=== PATIENT | male | born 1980 | race Caucasian/White ===

== ENCOUNTER 2025-01-28 07:16 | Outpatient (CLI) | payer OTHER, SELFPAY ==
--- NOTE | 2025-01-28 08:50 | P.ANES_ITS ---
Anesthesia Charges Start Date/Time Anesthesia Start Date: 01/28/25 Anesthesia Start Time: 08:12 Stop Date/Time Anesthesia Stop Date: 01/28/25 Anesthesia Stop Time: 08:47 Coding CPT Codes CPT Codes: ROBBIE LWR INTST NDSC NOS - [id number] ([id number]) P2 - PATIENT W/MILD SYST DISEASE, QK - MAINTENANCE SHOP CLERK 2-4 CNCRNT ANES PROC, QX - SUPERVISOR AUDIT CLERKS SVC W/ MD MED DIRECTION
--- NOTE | 2025-01-28 08:50 | W.ANESCHARGE ---
Anesthesia Charges Start Date/Time Anesthesia Start Date: 01/28/25 Anesthesia Start Time: 08:12 Stop Date/Time Anesthesia Stop Date: 01/28/25 Anesthesia Stop Time: 08:47 Coding CPT Codes CPT Codes: ROBBIE LWR INTST NDSC NOS - [id number] ([id number]) P2 - PATIENT W/MILD SYST DISEASE, QK - HOTEL ROOM ATTENDANT 2-4 CNCRNT ANES PROC, QX - UPHOLSTERY TECHNICIAN SVC W/ MD MED DIRECTION
--- NOTE | 2025-01-28 10:13 | P.ANES_ITS ---
Anesthesia Charges Start Date/Time Anesthesia Start Date: 01/28/25 Anesthesia Start Time: 08:12 Stop Date/Time Anesthesia Stop Date: 01/28/25 Anesthesia Stop Time: 08:47 Coding CPT Codes CPT Codes: ROBBIE IBARRA INTST NDSC NOS - [id number] ([id number]) P2 - PATIENT W/MILD SYST DISEASE, QX - ELECTRONIC TEST TECHNICIAN SVC W/ MD MED DIRECTION, QK - PRODUCT SUPPORT SPECIALIST 2-4 CNCRNT ANERasta PROC
--- NOTE | 2025-01-28 10:13 | W.ANESCHARGE ---
Anesthesia Charges Start Date/Time Anesthesia Start Date: 01/28/25 Anesthesia Start Time: 08:12 Stop Date/Time Anesthesia Stop Date: 01/28/25 Anesthesia Stop Time: 08:47 Coding CPT Codes CPT Codes: ROBBIE IBARRA INTST NDSC NOS - [id number] ([id number]) P2 - PATIENT W/MILD SYST DISEASE, QX - FORESTRY AID TECHNICIAN SVC W/ MD MED DIRECTION, QK - OIL DELIVERER 2-4 CNCRNT ANERasta PROC
== END 2025-01-28 07:17 | disposition home or self-care (01) ==
LOC: OP CLINIC 07:16
PROVIDERS: PCP Family Medicine; Visit Provider Surgery
DX: Z12.11 Encounter for screening for malignant neoplasm of colon (principal); D12.8 Benign neoplasm of rectum; Z83.719 Family history of colon polyps, unspecified
CPT/HCPCS: 00811; 00812; 45385; J2704